=== PATIENT | male | born 1995 | race Caucasian/White ===

== ENCOUNTER 2016-08-18 01:23 | Emergency (ER) | payer SELFPAY | END 2016-08-18 02:08 | disposition home or self-care (01) | LOC: D.ER 01:23 | DX: J45.901 Unspecified asthma with (acute) exacerbation (principal); F17.200 Nicotine dependence, unspecified, uncomplicated ==

== ENCOUNTER 2016-12-12 13:01 | Emergency (ER) | payer SELFPAY | END 2016-12-12 14:16 | disposition home or self-care (01) | LOC: D.ER 13:01 | DX: J20.9 Acute bronchitis, unspecified (principal); J45.909 Unspecified asthma, uncomplicated ==

== ENCOUNTER 2018-09-30 10:03 | Emergency (ER) | payer MEDICAID ==
[~2018-09-30] VITALS: Ht 185.4 cm; Wt 115.9 kg
[2018-09-30 10:07] VITALS: BP 131/74; Ht 185.4 cm; Wt 115.9 kg
[2018-09-30 10:36] LABS: BASOPHILS 0.2 % (0-2); EOSINOPHILS 1.4 % (0-7); HEMATOCRIT 47.1 % (42.0-54.0); HEMOGLOBIN 16.4 g/dL (13.5-17.5); IMMATURE GRANULOCYTES 0.3 % (0-5); LYMPHOCYTES 20.8 % (15-50); MCH 31.1 pg (26.0-34.0); MCHC 34.8 g/dL (31.0-37.0); MCV 89.4 fL (80.0-100.0); MEAN PLATELET VOLUME 9.2 fL (7.4-10.4); MONOCYTES 5.3 % (2-11); PLATELET COUNT 273 10x3/uL (130-400); RBC 5.27 10x6/uL (4.20-6.10); RDW 13.2 % (11.5-14.5); WBC 9.5 10x3/uL (4.8-10.8)
[2018-09-30 11:00] LABS: ALBUMIN 3.8 g/dL (3.4-5.0); ALKALINE PHOSPHATASE 88 U/L (46-116); ALT (SGPT) 33 U/L (10-68); AMYLASE - SERUM 42 U/L (25-115); BILIRUBIN - TOTAL 0.67 mg/dL (0.2-1.3); CALC OSMOLALITY 276 mosm/kg (275-300); CALCIUM 8.7 mg/dL (8.5-10.1); CARBON DIOXIDE 26.8 mmol/L (21.0-32.0); CHLORIDE - SERUM 102 mmol/L (98-107); GLUCOSE 105 mg/dL (74-106); LIPASE 84 U/L (73-393); POTASSIUM - SERUM 3.4 mmol/L (3.5-5.1); PROTEIN - SERUM 8.3 g/dL (6.4-8.2); SODIUM 138 mmol/L (136-145); UREA NITROGEN 15 mg/dL (7-18); eGFR NON AFRICAN AMERICAN > 90 mL/min (90-120)
[2018-09-30] MEDS ORDERED: ZOFRAN ODT4 MG/UDTAB PO (11:56)
[2018-09-30] MEDS ORDERED: LOMOTIL 2.5-0.1 EAC1 PO (11:56)
[2018-09-30 12:07] LABS: APPEARANCE CLEAR (CLEAR); BILIRUBIN NEGATIVE (NEGATIVE); COLOR YELLOW (YELLOW); GLUCOSE NEGATIVE (NEGATIVE); KETONE SMALL mg/dL (NEGATIVE); NITRITE NEGATIVE (NEGATIVE); PROTEIN NEGATIVE (NEGATIVE); UROBILINOGEN NORMAL (NORMAL)
== END 2018-09-30 12:28 | disposition home or self-care (01) ==
LOC: D.ER 10:03
PROVIDERS: Emergency Medicine
DX: R11.10 Vomiting, unspecified (principal); R19.7 Diarrhea, unspecified

== ENCOUNTER 2019-01-11 16:41 | Emergency (ER) | payer MEDICAID ==
[~2019-01-11] VITALS: Ht 185.4 cm; Wt 118.2 kg
[~2019-01-11 16:41] MED LIST: LOMOTIL 2.5-0.1 EAC1 PO; ZOFRAN ODT4 MG/UDTAB PO
[2019-01-11 16:45] VITALS: Ht 185.4 cm; Wt 118.2 kg
[2019-01-11 17:27] LABS: BASOPHILS 0.2 % (0-2); EOSINOPHILS 0.4 % (0-7); HEMATOCRIT 45.4 % (42.0-54.0); IMMATURE GRANULOCYTES 0.3 % (0-5); MCH 30.8 pg (26.0-34.0); MCHC 35.2 g/dL (31.0-37.0); MCV 87.5 fL (80.0-100.0); MEAN PLATELET VOLUME 9.2 fL (7.4-10.4); MONOCYTES 9.7 % (2-11); NEUTROPHILS 70.4 % (40-80); PLATELET COUNT 225 10x3/uL (130-400); RBC 5.19 10x6/uL (4.20-6.10); RDW 13.1 % (11.5-14.5); WBC 11.2 10x3/uL (4.8-10.8)
[2019-01-11 17:44] LABS: APTT 29.9 SECONDS (22.8-39.4); INR 1.12 (0.85-1.17); PROTIME 13.9 SECONDS (11.6-15.0)
[2019-01-11 17:50] LABS: ALBUMIN 3.9 g/dL (3.4-5.0); ALKALINE PHOSPHATASE 88 U/L (46-116); ALT (SGPT) 34 U/L (10-68); BILIRUBIN - TOTAL 0.62 mg/dL (0.2-1.3); CALC OSMOLALITY 273 mosm/kg (275-300); CALCIUM 8.7 mg/dL (8.5-10.1); CARBON DIOXIDE 26.7 mmol/L (21.0-32.0); CHLORIDE - SERUM 99 mmol/L (98-107); CREATININE - SERUM 1.1 mg/dL (0.6-1.3); GLUCOSE 102 mg/dL (74-106); POTASSIUM - SERUM 3.2 mmol/L (3.5-5.1); PROTEIN - SERUM 8.4 g/dL (6.4-8.2); SODIUM 137 mmol/L (136-145); UREA NITROGEN 12 mg/dL (7-18); eGFR NON AFRICAN AMERICAN 87 mL/min (90-120)
[2019-01-11 18:02] LABS: CKMB 0.7 U/L (0.0-3.6); CREATINE KINASE 237 UL (21-232)
[2019-01-11 18:05] LABS: TROPONIN-I < 0.017 ng/mL (0.000-0.060)
[2019-01-11] MEDS ORDERED: ZPAK PO (18:12)
[2019-01-11] MEDS ORDERED: PHENERGAN DM SYR5 ML PO (18:12)
[2019-01-11 18:59] VITALS: BP 124/76
== END 2019-01-11 19:00 | disposition home or self-care (01) ==
LOC: D.ER 16:41
PROVIDERS: Family Medicine
DX: J40 Bronchitis, not specified as acute or chronic (principal); J06.9 Acute upper respiratory infection, unspecified; R50.9 Fever, unspecified